=== PATIENT | male | born 2000 | race African-American/Black ===

== ENCOUNTER 2024-04-14 13:57 | Outpatient (REF) | payer MEDICAID, SELFPAY ==
[2024-04-18 13:38] LABS: HIV RNA PCR Qn Copies 26 copies/mL (NOT DETECTED); HIV RNA PCR Qn Log Copies 1.41 (NOT DETECTED)
[2024-04-18 20:13] LABS: Absolute CD3 Count 1787 cells/uL (840-3060); Absolute CD4 Count 927 cells/uL (490-1740); Absolute CD8 Count 822 cells/uL (180-1170); Absolute Lymphocytes 2479 cells/uL (850-3900); CD4 CD8 Ratio 1.13 (0.86-5.00); Percent CD3 Cells 72 % (57-85); Percent CD4 Cells 37 % (30-61); Percent CD8 Cells 33 % (12-42)
== END 2024-04-14 13:58 | disposition home or self-care (01) ==
LOC: HO.HHCL 13:57
PROVIDERS: Visit Provider Internal Medicine
DX: B20 Human immunodeficiency virus [HIV] disease (principal)
CPT/HCPCS: 36415; 82550; 86359; 86360; 87536

== ENCOUNTER 2024-05-18 14:53 | Outpatient (REF) | payer MEDICAID, SELFPAY ==
[2024-05-18 16:48] LABS: MANUAL DIFF FLAG NO
[2024-05-18 17:01] LABS: Basophils Percent Auto 0.4 % (0-2); Eosinophils Absolute Auto 0.1 X10*3/uL (0.0-0.4); Eosinophils Percent Auto 0.9 % (0-4); Hematocrit 42.9 % (42.0-52.0); Hemoglobin 15.1 g/dl (14.0-18.0); Imm Gran Abs Auto 0.01 X10*3/uL (0.00-0.03); Imm Gran Pct Auto 0.2 % (0.0-0.4); Lymphocytes Percent Auto 38.4 % (20-40); Mean Corpuscular HGB Conc 35.2 g/dl (31.0-36.0); Mean Corpuscular Hemoglobin 30.3 pg (27.0-33.0); Mean Platelet Volume 9.1 fL (9.4-12.4); Monocytes Absolute Auto 0.5 X10*3/uL (0.1-1.2); Monocytes Percent Auto 9.6 % (2-11); Neutrophils Absolute Auto 2.7 x10*3/uL (2.0-8.3); Neutrophils Percent Auto 50.5 % (45-73); Platelet Count 355 X10*3/uL (160-400); Red Blood Count 4.99 X10*6/uL (4.60-5.80); Red Cell Distribution Width 12.5 % (11.0-16.0); White Blood Count 5.3 X10*3/uL (4.8-10.8)
[2024-05-18 17:17] LABS: Alanine Aminotransferase 22 U/L (0-40); Albumin Level 4.6 g/dL (3.5-5.0); Alkaline Phosphatase 54 U/L (39-117); Anion Gap 10 (12-20); Aspartate Amino Transferase 22 U/L (5-37); Bilirubin Total 0.5 mg/dL (0.0-1.0); Blood Urea Nitrogen 8 mg/dL (9-16); Calcium 9.5 mg/dL (8.4-10.2); Carbon Dioxide 27 mmol/L (22-29); Chloride 107 mmol/L (96-108); Estimated Glomerular Filt Rate > 60; Glucose Random 90 mg/dL (60-115); Potassium 3.7 mmol/L (3.3-5.1); Sodium 140 mmol/L (135-145); Total Protein 7.6 g/dL (6.5-8.0)
[2024-05-19 08:04] LABS: HBc Num1 0.11 S/CO (0.00-0.79); HBsAGNum1 0.41 S/CO (0.00-0.99); Hepatitis B Core Antibody Nonreactive (Nonreactive); Hepatitis B Surface Antigen Negative (Negative); ~HepC Num1 0.72 S/CO (0.00-0.79); ~Hepatitis B Surface Antibody NONREACTIVE (Nonreactive); ~Hepatitis C Antibody Nonreactive (Nonreactive)
[2024-05-19 08:20] LABS: Hepatitis A Antibody IgG Nonreactive (Nonreactive)
[2024-05-19 08:23] LABS: Syphilis Screen Nonreactive (Nonreactive)
[2024-05-21 00:33] LABS: TS Negative Control Passed; TS Panel A 1; TS Panel B 0; TS Positive Control Passed; TSpotTB Negative (Negative)
== END 2024-05-18 14:54 | disposition home or self-care (01) ==
LOC: HO.HHCL 14:53
PROVIDERS: Visit Provider Internal Medicine
DX: B20 Human immunodeficiency virus [HIV] disease (principal)
CPT/HCPCS: 36415; 80053; 85025; 86481; 86704; 86706; 86708; 86780; 86803; 87340

== ENCOUNTER 2024-06-02 10:42 | Emergency (ER) | payer MEDICAID, SELFPAY ==
[2024-06-02 10:55] VITALS: BP 144/101; PULSE 82; RESP 16; TEMP 36.9; O2SAT 99; BMI 19.8
--- NOTE | 2024-06-02 14:01 | ED.GENADULT ---
HPI - General Adult General Chief complaint: General Medical Stated complaint: l buttok pain Time Seen by Provider: 06/02/24 13:36 Source: patient Mode of arrival: ambulatory Limitations: no limitations History of Present Illness ED Provider: Mahin DE LA CRUZ HPI narrative: 24 year old female hx of HIV on Cabenuva presents w/ painful L buttocks s/p cabenuva injection to L buttocks IM last week on . Reports a persistent sore sensation to left buttocks. Reports this is a new med so he was worried and wanted to come in to get seen. Slight fatigue and malaise. Related Data Previous Rx's ?Medication ?Instructions ?Recorded naproxen 500 mg tablet 500 mg PO BID PRN pain #14 tabs 06/02/24 Allergies Allergy/AdvReac Type Severity Reaction Status Date / Time No Known Allergies Allergy Verified 06/02/24 10:57 Review of Systems Review of Systems: Yes all other systems are reviewed and are negative [facility] Past Medical History Attestation statement: The following information was validated with the patient. Source: old records reviewed and nursing notes reviewed Social History Social History Advance Directives: No Advance Directives Information Provided: Yes Do you have a plan to hurt others: No Plan Physical Exam ED Vital Signs: Vital Signs - 24 hr 06/02/24 10:55 Temperature 98.4 F Pulse Rate 82 Respiratory Rate 16 Blood Pressure 144/101 H Pulse Oximetry 99 Oxygen Delivery Method Room Air BMI result Body Mass Index 19.8 vss Appearance: Alert.? Oriented X3.? No acute distress.? Head: Normocephalic, atraumatic, no step-offs or deformitie Neck: Normal inspection.? Neck supple.? CVS: ? Pulses normal.? Respiratory: No respiratory distress.? Skin: Skin warm and dry.? Normal skin color.? Normal skin turgor.? Extremities: 5/5 strength to bilateral upper and lower extremities Neuro: Oriented X 3.? No motor deficit.? No sensory deficit. Buttocks bilaterally symmetrical, no lumps or masses no erythema or warmth. No fluctuance. Course Reevaluation(s) Reevaluation #1: Patient given a heat pack. Educated on NSAIDs. My colleague XAVIER Wilson also evaluated patient who agrees that this is unlikely a hematoma intramuscularly likely small superficial. Unable to palpate any lumps or masses to buttocks. Educated patient on diagnosis and treatment plan, answered all question, patient verbalizes understanding. At this time patient will be discharged home, advised to return with new or worsening symptoms. Educated on worrisome signs and symptoms and when to return. At this time I feel comfortable discharge home. Time: 14:27 Medical Decision Making Medical Decision Making [facility] Narrative: 1403 24-year-old male presents with concerns that his injection site is irritated. Physical exam History and physical exam concerning for superficial thrombophlebitis versus small hematoma no signs of intramuscular hematoma. Unlikely abscess, infection. No signs of necrosis. Plan- warm compresses, naproxen and dc Differential Diagnosis Differential Diagnoses: The differential diagnosis associated with the presentation includes History and physical exam concerning for superficial thrombophlebitis versus small hematoma no signs of intramuscular hematoma. . Unlikely abscess, infection. No signs of necrosis. Admission/Observation Consideration of admission/observation: Escalation of care including admission/observation considered No indication Prescription Management I considered prescription management with: Pain Medication Chronic Conditions Patient?s care impacted by: Other (HIV ) Discharge Plan Discharge Clinical Impression: Hematoma of injection site Patient Disposition: Home, Self-Care Additional Instructions: Take your medications as prescribed. If you were prescribed antibiotics today, it is important that you take your medication to their entirety, do not skip any doses, do not finish them early. Follow-up with your primary care provider this week. Return to the emergency department with new or worsening symptoms. Such as fevers, chills, chest pain, shortness of breath, nausea, vomiting, dizziness, headache, vision changes, lethargy In case of emergency call 911 Apply warm compresses to the area multiple times per day preferably 3 to 4 times a day. You can take naproxen as needed for discomfort. Prescriptions: New naproxen 500 mg tablet 500 mg PO BID PRN (Reason: pain) Qty: 14 0RF Rx Instructions: Take with food Referrals: Janet Raygoza MD [Primary Care Provider] - 2 days Print Language: Hungarian
[2024-06-02 14:30] VITALS: BP 132/92; PULSE 78; RESP 16; TEMP 36.9; O2SAT 97
[2024-06-02 14:48] VITALS: BP 132/92; PULSE 78; RESP 16; TEMP 36.9; O2SAT 97
== END 2024-06-02 14:48 | disposition home or self-care (01) ==
PROVIDERS: Emergency Provider Emergency Medicine; PCP Internal Medicine
DX: M79.81 Nontraumatic hematoma of soft tissue (principal)
CPT/HCPCS: 99283

== ENCOUNTER 2024-07-15 11:53 | Outpatient (REF) | payer MEDICAID, SELFPAY ==
[2024-07-15 13:19] LABS: MANUAL DIFF FLAG NO
[2024-07-15 13:21] LABS: Basophils Percent Auto 0.5 % (0-2); Hematocrit 47.5 % (42.0-52.0); Hemoglobin 16.5 g/dl (14.0-18.0); Imm Gran Abs Auto 0.01 X10*3/uL (0.00-0.03); Imm Gran Pct Auto 0.2 % (0.0-0.4); Lymphocytes Absolute Auto 1.5 X10*3/uL (1.2-4.9); Lymphocytes Percent Auto 35.1 % (20-40); Mean Corpuscular HGB Conc 34.7 g/dl (31.0-36.0); Mean Corpuscular Hemoglobin 30.1 pg (27.0-33.0); Mean Corpuscular Volume 86.5 fL (80.0-98.0); Monocytes Absolute Auto 0.4 X10*3/uL (0.1-1.2); Monocytes Percent Auto 8.8 % (2-11); Neutrophils Absolute Auto 2.3 x10*3/uL (2.0-8.3); Neutrophils Percent Auto 54.4 % (45-73); Platelet Count 356 X10*3/uL (160-400); Red Blood Count 5.49 X10*6/uL (4.60-5.80); Red Cell Distribution Width 12.6 % (11.0-16.0); White Blood Count 4.2 X10*3/uL (4.8-10.8)
[2024-07-15 13:45] LABS: Alanine Aminotransferase 29 U/L (0-40); Albumin Level 4.7 g/dL (3.5-5.0); Alkaline Phosphatase 65 U/L (39-117); Anion Gap 12 (12-20); Aspartate Amino Transferase 21 U/L (5-37); Bilirubin Total 0.9 mg/dL (0.0-1.0); Blood Urea Nitrogen 7 mg/dL (9-16); Calcium 9.2 mg/dL (8.4-10.2); Carbon Dioxide 28 mmol/L (22-29); Chloride 103 mmol/L (96-108); Estimated Glomerular Filt Rate > 60; Glucose Random 106 mg/dL (60-115); Potassium 3.4 mmol/L (3.3-5.1); Sodium 140 mmol/L (135-145); Total Protein 7.7 g/dL (6.5-8.0)
[2024-07-16 14:53] LABS: HIV RNA PCR Qn Copies 76 copies/mL (NOT DETECTED); HIV RNA PCR Qn Log Copies 1.88 (NOT DETECTED)
== END 2024-07-15 11:54 | disposition home or self-care (01) ==
LOC: HO.HHCL 11:53
PROVIDERS: Visit Provider Internal Medicine
DX: Z21 Asymptomatic human immunodeficiency virus [HIV] infection status (principal)
CPT/HCPCS: 36415; 80053; 82550; 85025; 87536

== ENCOUNTER 2024-09-01 12:10 | Outpatient (REF) | payer MEDICAID, SELFPAY ==
[2024-09-02 15:48] LABS: HIV RNA PCR Qn Copies NOT DETECTED copies/mL (NOT DETECTED); HIV RNA PCR Qn Log Copies NOT DETECTED (NOT DETECTED)
== END 2024-09-01 12:11 | disposition home or self-care (01) ==
LOC: HO.HHCL 12:10
PROVIDERS: Visit Provider Internal Medicine
DX: Z21 Asymptomatic human immunodeficiency virus [HIV] infection status (principal)
CPT/HCPCS: 36415; 87536

== ENCOUNTER 2024-12-14 15:09 | Outpatient (REF) | payer MEDICAID, SELFPAY ==
[2024-12-14 16:51] LABS: TSH reflex Free T4 0.91 uIU/mL (0.32-4.0)
[2024-12-14 17:25] LABS: Parathyroid Hormone Intact 61.4 pg/mL (8.7-77.1)
[2024-12-15 15:08] LABS: HIV RNA PCR Qn Copies 94 copies/mL (NOT DETECTED); HIV RNA PCR Qn Log Copies 1.97 (NOT DETECTED)
[2024-12-19 17:04] LABS: Aldosterone/Renin Ratio 1.1 Ratio (0.9-28.9); Plasma Renin Activity 1.89 ng/mL/h (0.25-5.82)
== END 2024-12-14 15:10 | disposition home or self-care (01) ==
LOC: HO.HHCL 15:09
PROVIDERS: Visit Provider Internal Medicine
DX: Z21 Asymptomatic human immunodeficiency virus [HIV] infection status (principal); I10 Essential (primary) hypertension
CPT/HCPCS: 36415; 82088; 83970; 84443; 87536

== ENCOUNTER 2025-06-23 14:14 | Outpatient (REF) | payer MEDICAID, SELFPAY ==
--- OUTSIDE RECORDS SUMMARY | 2025-06-23 15:19 | XMS_ITS | Clinical Summary ---
Author Organization [facility] Address [address] [place] [address] Care Team Providers Care Tunnel Inspector Name Role Phone Joe Pratt MD Primary Care Provider [phone] Allergies No known active allergies Medications Medication Sig Dispensed Refills Start Date End Date Status bictegravir-emtricitab ine-tenofovir (Biktarvy) 50-200-25 MG TABS tablet Take 1 tablet by mouth daily. 0 Active Active Problems No known active problems Social History Tobacco Use Types Packs/Day Years Used Date Smoking Tobacco: Never Smokeless Tobacco: Never Tobacco Cessation:Counseling Given: Not Answered Alcohol Use Standard Drinks/Week Comments Yes 0 (1 standard drink = 0.6 oz pur e alcohol) Social Sex and Gender Information Value Date Recorded Sex Assigned at Not on file Gender Identity Not on file Sexual Orientation Not on file Job Start Date Occupation Industry Not on file Not on file Not on file Last Filed Vital Signs Vital Sign Reading Time Taken Comments Blood Pressure 142/92 01/29/2024 10:51 AM EDT Pulse 77 01/29/2024 10:51 AM EDT Temperature 36.8 C (98.2 F) 01/29/2024 10:51 AM EDT Respiratory Rate - - Oxygen Saturation 100% 01/29/2024 10:51 AM EDT Inhaled Oxygen Concentration - - Weight 57.6 kg (127 lb) 01/29/2024 10:51 AM EDT Height 172.7 cm (5' 8 ) 01/29/2024 10:51 AM EDT Body Mass Index 19.31 01/29/2024 10:51 AM EDT Plan of Treatment Health Maintenance Due Date Last Done Comments Hepatitis C Screening 1998 Depression Screening 2010 Preventative Health Evaluation 02/25/2016 COVID-19 Vaccine ( season) 2025 07/22/2021, 07/01/2021 Influenza Vaccine (#1) 2025 4, 06/09/2013, 07/11/2010, Additional history exists DTap / Tdap / Td (8 - Td or Tdap) 12/08/2033 12/09/2023, 07/11/2010, 06/05/2003, Additional history exists Hepatitis B Vaccines Completed 1998, 1998, 1998 Pneumococcal Vaccine Aged Out 12/09/2023 No long er eligible based on patient's age to complete this topic RSV Ped < 20 months Aged Out No longe r eligible based on patient's age to complete this topic Care Teams Tunnel Inspector Relationship Specialty Start Date End Date Joe Pratt MD [address] [place] [id number] PCP - General Internal Medicine 12/24/23
[2025-06-23 16:04] LABS: MANUAL DIFF FLAG NO
[2025-06-23 16:12] LABS: Hematocrit 41.8 % (42.0-52.0); Hemoglobin 14.8 g/dl (14.0-18.0); Imm Gran Abs Auto 0.01 X10*3/uL (0.00-0.03); Imm Gran Pct Auto 0.3 % (0.0-0.4); Lymphocytes Absolute Auto 1.6 X10*3/uL (1.2-4.9); Mean Corpuscular HGB Conc 35.4 g/dl (31.0-36.0); Mean Corpuscular Hemoglobin 30.8 pg (27.0-33.0); Mean Corpuscular Volume 86.9 fL (80.0-98.0); NRBC Abs Auto 0.000 X10*3/uL (0.0-0.012); NRBC Pct Auto 0.0 /100WBC (0.0-0.2); Platelet Count 323 X10*3/uL (160-400); Red Blood Count 4.81 X10*6/uL (4.60-5.80); White Blood Count 4.0 X10*3/uL (4.8-10.8)
[2025-06-23 16:17] LABS: Hemoglobin A1C 130.8210 umol/L; Total Hemoglobin (HGBA1C) 3780.7202 umol/L
[2025-06-23 16:26] LABS: Alanine Aminotransferase 22 U/L (0-40); Albumin Level 4.7 g/dL (3.5-5.0); Alkaline Phosphatase 53 U/L (39-117); Anion Gap 9 (12-20); Aspartate Amino Transferase 32 U/L (5-37); Blood Urea Nitrogen 8 mg/dL (9-16); Calcium 9.2 mg/dL (8.4-10.2); Carbon Dioxide 29 mmol/L (22-29); Chloride 106 mmol/L (96-108); Cholesterol 170 mg/dL (<200); Estimated Glomerular Filt Rate > 60; HDL Cholesterol 43 mg/dL (>40); Potassium 4.1 mmol/L (3.3-5.1); Sodium 140 mmol/L (135-145); Total Protein 7.3 g/dL (6.5-8.0); Triglycerides 62 mg/dL (<150)
[2025-06-23 17:36] LABS: Reflex LDLD? No
[2025-06-26 04:53] LABS: HBS Num1 > 1000.00 mIU/mL (0-7.99); HBsAGNum1 0.35 S/CO (0.00-0.99); Hepatitis B Surface Antigen Negative (Negative); ~HepC Num1 0.52 S/CO (0.00-0.79); ~Hepatitis B Surface Antibody REACTIVE (Nonreactive); ~Hepatitis C Antibody Nonreactive (Nonreactive)
[2025-06-26 08:49] LABS: TS Negative Control Passed; TS Panel A 0; TS Panel B 1; TS Positive Control Passed; TSpotTB Negative (Negative)
[2025-06-29 15:48] LABS: Absolute CD3 Count 1244 cells/uL (840-3060); Absolute CD8 Count 524 cells/uL (180-1170); Percent CD3 Cells 71 % (57-85); Percent CD8 Cells 30 % (12-42)
== END 2025-06-23 14:15 | disposition home or self-care (01) ==
LOC: HO.HHCL 14:14
PROVIDERS: Visit Provider Internal Medicine
DX: Z11.59 Encounter for screening for other viral diseases (principal); Z11.1 Encounter for screening for respiratory tuberculosis; Z21 Asymptomatic human immunodeficiency virus [HIV] infection status
CPT/HCPCS: 36415; 80053; 80061; 83036; 85025; 86359; 86360; 86481; 86592; 86706; 86803; 87340

== ENCOUNTER 2025-07-07 14:00 | Outpatient (REF) | payer SELFPAY ==
[2025-07-10 09:23] LABS: HIV RNA PCR Qn Copies 37 copies/mL (NOT DETECTED); HIV RNA PCR Qn Log Copies 1.57 (NOT DETECTED)
== END 2025-07-07 14:01 | disposition home or self-care (01) ==
LOC: HO.HHCL 14:00
PROVIDERS: Visit Provider Internal Medicine
DX: Z21 Asymptomatic human immunodeficiency virus [HIV] infection status (principal)
CPT/HCPCS: 36415; 87536